=== PATIENT | female | born 1980 | race Caucasian/White ===

== ENCOUNTER → 2019-03-21 09:38 | Outpatient (CLI) | payer OTHER, SELFPAY ==
--- NOTE | 2019-03-21 09:49 | CT_ITS ---
PROCEDURE: CT ABDOMEN PELVIS W CON CLINICAL INDICATION: abdominal pain w/ nausea and vomitting Epigastric pain, right upper quadrant pain COMPARISON: CT ABDOMEN PELVIS WO CON from 03/03/2019 TECHNIQUE: IV Contrast: 75ML OPTIRAY 350 Oral Contrast 450ml Redicat Axial images obtained with sagittal and coronal reformats. All CT scans at the facility use one or more dose reduction, viz: automated exposure control, ma/kV adjustment per patient size (including targeted exams where dose is matched to indication, i.e. head), or iterative reconstruction technique. FINDINGS: LOWER THORAX: No acute finding ABDOMEN & PELVIS: Fatty liver. No focal liver lesion. The gallbladder, spleen, adrenal glands, pancreas, and kidneys have an unremarkable appearance. No intestinal obstruction or free air. No evidence of appendicitis or diverticulitis. The previously noted stranding of the fat posterior to the tail the pancreas is not significantly changed and could represent an area of scarring. No pelvic mass abnormal fluid collection or focal inflammatory change. No acute bony anomaly. IMPRESSION: No acute abdominal or pelvic findings. Dictated by: Blair Brownlee MD 03/21/2019 16:23 Electronically signed by Blair Brownlee MD in [place] 03/21/2019 16:23
[2019-03-21 10:00] LABS: Blood Urea Nitrogen 20 mg/dL (7-18); Creatinine,Serum 1.15 mg/dL (0.55-1.02); Estimated Glomerular Filt Rate 53 ml/min (>60); GFR (African American) 64 ML/MIN (>60)
== END ==
PROVIDERS: PCP Nurse Practitioner Family; Visit Provider Surgery
DX: K46.9 Unspecified abdominal hernia without obstruction or gangrene (principal)
CPT/HCPCS: 36415; 74177; 82565; 84520; Q9967